=== PATIENT | female | born 1990 | race Caucasian/White ===

== ENCOUNTER 2017-03-14 15:36 | Emergency (ER) | payer BC ==
[2017-03-14 18:33] VITALS: BP 101/54
--- NOTE | 2017-03-14 19:12 | UC ---
UC General HPI - HPI Summary HPI Summary: Pt c/o of sudden onset of migraine FAJARDO on 03/12/17, Pt reports taking a tramadol for FAJARDO with a little improvement. Pt states that she feels wiped out, nauseous , blurry vision, fatigued. denies fever, chills, diarrhea, dysuria, unilateral weakness, denies urinary symptoms, UTI symptoms, recent injury , numbness, tingling. Pt reports that she has difficulty sleeping throughout the night, denies depression like symptoms, does reports gentle squeezing of the crown of her head. - History of Current Complaint Chief Complaint: UCRespiratory Stated Complaint: NAUSEA/FATIGUE Time Seen by Provider: 03/14/17 18:18 Hx Obtained From: Patient Hx Last Menstrual Period: 03/14/17 Onset/Duration: Sudden Onset, Lasting Days, Still Present Timing: Constant Onset Severity: Mild Current Severity: Mild Pain Intensity: 6 Associated Signs & Symptoms: Positive: Dizziness, Syncope, Weakness - Allergy/Home Medications Allergies/Adverse Reactions: Allergies Allergy/AdvReac Type Severity Reaction Status Date / Time No Known Allergies Allergy Verified 03/14/17 18:21 Home Medications: Home Medications FLUoxetine CAP* [PROzac CAP*] 10 mg PO DAILY 03/14/17 [History Confirmed ] Gabapentin TAB(NF) [Neurontin 600 mg TAB(NF)] 2 tab BEDTIME 03/14/17 [History Confirmed 03/14/17] Naproxen [Naproxen 500 mg] 1 tab BID PRN 03/14/17 [History Confirmed 03/14/17] Naratriptan HCl 1 tab DAILY 03/14/17 [History Confirmed 03/14/17] Ondansetron [Zofran 8 MG Odt] 1 tab Q8H PRN 03/14/17 [History Confirmed 03/14/17 ] hydrOXYzine HCL TAB* [Atarax 10 MG TAB*] 1 tab BEDTIME 03/14/17 [History Confirmed 03/14/17] traMADol TAB* [Ultram*] 1 tab Q6HR PRN 03/14/17 [History Confirmed 03/14/17] PMH/Surg Hx/FS Hx/Imm Hx Previously Healthy: Yes Psychological History: Depression - Surgical History Surgical History: None - Family History Known Family History: Positive: Cardiac Disease - Social History Occupation: Student Lives: With Family Alcohol Use: Occasionally Substance Use Type: None Smoking Status (MU): Never Smoked Tobacco Have You Smoked in the Last Year: No Review of Systems Constitutional: Negative Skin: Negative Eyes: Blurred Vision ENT: Negative Respiratory: Negative Cardiovascular: Negative Gastrointestinal: Nausea Genitourinary: Negative Motor: Negative Neurovascular: Negative Musculoskeletal: Negative Neurological: Headache Psychological: Negative Is Patient Immunocompromised?: No All Other Systems Reviewed And Are Negative: Yes Physical Exam Triage Information Reviewed: Yes Appearance: Ill-Appearing Vital Signs: Initial Vital Signs Temp 98 F 03/14/17 18:25 Pulse 61 03/14/17 18:25 Resp 16 03/14/17 18:25 BP 101/54 03/14/17 18:25 Pulse Ox 98 03/14/17 18:25 Vital Signs Reviewed: Yes Eye Exam: Normal - PERRLA ENT Exam: Normal Dental Exam: Normal Neck exam: Normal Neck: Positive: Supple, Nontender, No Lymphadenopathy Respiratory Exam: Normal Cardiovascular Exam: Normal Abdominal Exam: Normal Musculoskeletal Exam: Normal Musculoskeletal: Positive: Strength Intact, ROM Intact, No Edema Neurological Exam: Normal Neurological: Positive: Alert, Muscle Tone Normal Psychological Exam: Normal Skin Exam: Normal Course/Dx - Course Course Of Treatment: I discussed with the pt the need to follow up with their PCP as soon as possible, and if symptoms worsened before then to get to ER. Remote differential: brain abnormality - Differential Dx - Multi-Symptom Differential Diagnoses: CVA, Other - depression, hypothyroid, flu, Provider Diagnoses: fatigue. Headache Discharge - Discharge Plan Condition: Stable Disposition: HOME Patient Education Materials: Acute Headache (DC), Fatigue (ED) Referrals: Emerald Acosta PA [Primary Care Provider] - As Soon As Possible Additional Instructions: Please follow up with your PCP as soon as possible. If symptoms worsen before you are able to see your PCP please go to the closest Emergency Room as soon as possible.
== END 2017-03-14 19:22 | disposition home or self-care (01) ==
LOC: UCCORT 15:36
DX: R53.83 Other fatigue (principal); R51 Headache; F32.9 Major depressive disorder, single episode, unspecified; Z72.89 Other problems related to lifestyle
CPT/HCPCS: 87502; 99212; G0463